=== PATIENT | female | born 1960 | race Caucasian/White ===

== ENCOUNTER 2018-11-04 22:28 | Emergency (ER) | payer OTHER ==
[~2018-11-04] VITALS: Ht 160 cm; Wt 114.8 kg
[2018-11-04 23:13] LABS: BASOPHILS ABSOLUTE AUTO 0.04 K/mm3 (0.00-0.23); BASOPHILS PERCENT AUTO 1 % (0-2); EOSINOPHILS ABSOLUTE AUTO 0.18 K/mm3 (0.00-0.68); EOSINOPHILS PERCENT AUTO 2 % (0-6); Hematocrit 42.3 % (33.0-51.0); Hemoglobin 13.9 g/dL (11.5-16.0); IMMATURE GRAN ABSOLUTE AUTO 0.08 K/mm3 (0.00-0.10); IMMATURE GRAN PERCENT AUTO 1 % (0-1); LYMPHOCYTES ABSOLUTE AUTO 1.79 K/mm3 (0.84-5.20); LYMPHOCYTES PERCENT AUTO 21 % (21-46); MONOCYTES ABSOLUTE AUTO 0.79 K/mm3 (0.16-1.47); MONOCYTES PERCENT AUTO 9 % (4-13); Mean Corpuscular HGB Conc 32.9 g/dL (31.5-36.5); Mean Corpuscular Volume 98 fL (80-100); Mean Platelet Volume 10.4 fL (9.1-12.4); NEUTROPHILS ABSOLUTE AUTO 5.81 K/mm3 (1.96-9.15); NEUTROPHILS PERCENT AUTO 67 % (41-73); Platelet Count 212 K/mm3 (150-400); RDW Coefficient Variation 15.1 % (11.7-14.2); RDW Standard Deviation 54.8 fL (35.1-46.3); Red Blood Cell Count 4.34 M/mm3 (3.80-5.20); White Blood Cell Count 8.69 K/mm3 (4.00-11.30)
[2018-11-04 23:29] LABS: Alanine Aminotransfer (ALT/SGP 85 U/L (12-78); Albumin/Globulin Ratio 1.1 (0.8-1.8); Alk Phos 114 U/L (50-136); Anion Gap 10 mmol/L (6-16); Aspartate Aminotrans (AST/SGOT 43 U/L (12-37); Bilirubin, Total 0.7 mg/dL (0.1-1.0); Blood Urea Nitrogen 8 mg/dL (8-24); Bun/Creatinine Ratio 11.6 (12.0-20.0); CO2, Blood 27 mmol/L (21-32); Calcium, Blood 9.3 mg/dL (8.5-10.1); Chloride, Blood 101 mmol/L (98-108); Creatinine, Blood 0.69 mg/dL (0.40-1.00); Globulin, Blood 3.8 g/dL (2.2-4.0); Glomerular Filtration Rate >60 (60-); Glucose, Blood 118 mg/dL (70-99); Potassium, Blood 3.6 mmol/L (3.5-5.5); Sodium, Blood 138 mmol/L (136-145); Total Protein, Blood 7.8 g/dL (6.4-8.2); Troponin I <0.015 ng/mL (0.000-0.040)
[2018-11-05] MEDS ORDERED: LOSA25 (00:01)
[2018-11-05] MEDS ORDERED: METF500 (00:01)
[2018-11-05] MEDS ORDERED: Bactrim Ds Tab1 EACH (00:01)
[2018-11-05] MEDS ORDERED: FURO100EL PO (00:02)
[2018-11-05] MEDS ORDERED: MELO7.5 (00:02)
[2018-11-05] MEDS ORDERED: POTA8 (00:02)
[2018-11-05] MEDS ORDERED: Zofran4 MG PO (03:04)
== END 2018-11-05 03:25 | disposition home or self-care (01) ==
LOC: ER 22:28
PROVIDERS: Physician Assistant
DX: I10 Essential (primary) hypertension (principal); E11.9 Type 2 diabetes mellitus without complications; Z79.84 Long term (current) use of oral hypoglycemic drugs; Z79.899 Other long term (current) drug therapy
CPT/HCPCS: 71046; 80053; 84484; 85025; 93005; 93010; 99284-25

== ENCOUNTER 2018-11-16 09:05 | Emergency (ER) | payer OTHER ==
[~2018-11-16] VITALS: Ht 160 cm; Wt 113.4 kg
[~2018-11-16 09:05] MED LIST: Bactrim Ds Tab1 EACH; FURO100EL PO; LOSA25; MELO7.5; METF500; POTA8; Zofran4 MG PO
[2018-11-16] MEDS ORDERED: POTA8 (09:58)
[2018-11-16] MEDS ORDERED: PANT20 PO (09:58)
[2018-11-16] MEDS ORDERED: FURO40 PO (09:58)
[2018-11-16] MEDS ORDERED: BACL10 (09:59)
[2018-11-16] MEDS ORDERED: ALBU90OI INH (09:59)
[2018-11-16] MEDS ORDERED: WIXELA INHUB (09:59)
[2018-11-16] MEDS ORDERED: PROG100 (09:59)
[2018-11-16] MEDS ORDERED: GABA100 (09:59)
[2018-11-16] MEDS ORDERED: COLCHICINE0.6 MG PO (09:59)
[2018-11-16] MEDS ORDERED: MELO7.5 (10:00)
[2018-11-16] MEDS ORDERED: Metformin Hydro25 GM (10:00)
[2018-11-16] MEDS ORDERED: LOSA25 (10:00)
[2018-11-16] MEDS ORDERED: Percocet 5-3251 EACH PO (10:54)
[2018-11-16] MEDS ORDERED: CEPH500 PO ×3 (10:54→11:05)
[2018-11-16] MEDS ORDERED: Monodox100 MG PO ×3 (10:54→11:05)
[2018-11-16] MEDS ORDERED: TRAM50 PO (11:10)
[2018-11-16] MEDS ORDERED: FLUC150A PO (13:32)
== END 2018-11-16 11:19 | disposition home or self-care (01) ==
LOC: ER 09:05
DX: L03.116 Cellulitis of left lower limb (principal); Z79.899 Other long term (current) drug therapy; E11.9 Type 2 diabetes mellitus without complications; I10 Essential (primary) hypertension; Z87.891 Personal history of nicotine dependence
CPT/HCPCS: 93971; 96372; 99283-25; J1885

== ENCOUNTER 2020-02-27 09:37 | Emergency (ER) | payer OTHER ==
[~2020-02-27] VITALS: Ht 160 cm; Wt 116.6 kg
[~2020-02-27 09:37] MED LIST changes: +ALBU90OI INH; +BACL10; +CEPH500 PO; +COLCHICINE0.6 MG PO; +FLUC150A PO; +FURO40 PO; +GABA100; +Metformin Hydro25 GM; +Monodox100 MG PO; +PANT20 PO; +PROG100; +Percocet 5-3251 EACH PO; +TRAM50 PO; +WIXELA INHUB
[2020-02-27 10:14] LABS: BASOPHILS ABSOLUTE AUTO 0.05 K/mm3 (0.00-0.23); BASOPHILS PERCENT AUTO 1 % (0-2); EOSINOPHILS ABSOLUTE AUTO 0.15 K/mm3 (0.00-0.68); EOSINOPHILS PERCENT AUTO 3 % (0-6); Hematocrit 35.5 % (33.0-51.0); IMMATURE GRAN PERCENT AUTO 2 % (0-1); LYMPHOCYTES ABSOLUTE AUTO 1.27 K/mm3 (0.84-5.20); LYMPHOCYTES PERCENT AUTO 22 % (21-46); MONOCYTES ABSOLUTE AUTO 0.66 K/mm3 (0.16-1.47); MONOCYTES PERCENT AUTO 12 % (4-13); Mean Corpuscular HGB 30.5 pg (26.0-34.0); Mean Corpuscular Volume 98 fL (80-100); Mean Platelet Volume 10.7 fL (9.1-12.4); NEUTROPHILS ABSOLUTE AUTO 3.46 K/mm3 (1.96-9.15); NEUTROPHILS PERCENT AUTO 61 % (41-73); Platelet Count 224 K/mm3 (150-400); RDW Coefficient Variation 16.6 % (11.7-14.2); RDW Standard Deviation 60.2 fL (35.1-46.3); Red Blood Cell Count 3.61 M/mm3 (3.80-5.20); White Blood Cell Count 5.69 K/mm3 (4.00-11.30)
[2020-02-27 10:30] LABS: Alanine Aminotransfer (ALT/SGP 79 U/L (12-78); Albumin, Blood 3.3 g/dL (3.4-5.0); Alk Phos 110 U/L (50-136); Anion Gap 4 mmol/L (6-16); Aspartate Aminotrans (AST/SGOT 56 U/L (12-37); Bilirubin, Total 0.4 mg/dL (0.1-1.0); Blood Urea Nitrogen 12 mg/dL (8-24); Bun/Creatinine Ratio 17.3 (12.0-20.0); CO2, Blood 32 mmol/L (21-32); Calcium, Blood 8.7 mg/dL (8.5-10.1); Chloride, Blood 104 mmol/L (98-108); Creatinine, Blood 0.69 mg/dL (0.40-1.00); Globulin, Blood 3.2 g/dL (2.2-4.0); Glomerular Filtration Rate >60 (60-); Glucose, Blood 145 mg/dL (70-99); Magnesium, Blood 1.2 mg/dL (1.6-2.4); Potassium, Blood 4.2 mmol/L (3.5-5.5); Sodium, Blood 140 mmol/L (136-145); Total Protein, Blood 6.5 g/dL (6.4-8.2)
[2020-02-27] MEDS ORDERED: ANORO ELLIPTA1 EAC1 IH (10:42)
[2020-02-27] MEDS ORDERED: SERT100 PO (10:43)
[2020-02-27] MEDS ORDERED: Naltrexone HCl50 MG PO (10:44)
[2020-02-27] MEDS ORDERED: PANT40 PO (10:44)
[2020-02-27] MEDS ORDERED: FOLI1 PO (10:45)
[2020-02-27] MEDS ORDERED: ALLO300 PO (10:45)
[2020-02-27] MEDS ORDERED: ACAMPROSATE CA333 MG PO (10:46)
[2020-02-27] MEDS ORDERED: FLOVENT HFA12 GM INH (10:46)
[2020-02-27] MEDS ORDERED: ATOR40TA PO (10:47)
[2020-02-27] MEDS ORDERED: OMEGA-3 FISH O1 EAC6 PO (10:48)
[2020-02-27] MEDS ORDERED: TRAZ50 PO (10:48)
[2020-02-27] MEDS ORDERED: ALBU8HFA2 INH (10:49)
[2020-02-27] MEDS ORDERED: BACL10 PO (10:50)
[2020-02-27] MEDS ORDERED: ONDA4 PO (10:50)
[2020-02-27] MEDS ORDERED: POTA20PAC PO (12:47)
== END 2020-02-27 13:18 | disposition home or self-care (01) ==
LOC: ER 09:37
PROVIDERS: Emergency Medicine
DX: R60.0 Localized edema (principal); J44.9 Chronic obstructive pulmonary disease, unspecified; E11.9 Type 2 diabetes mellitus without complications; I10 Essential (primary) hypertension; Z79.84 Long term (current) use of oral hypoglycemic drugs; Z79.899 Other long term (current) drug therapy
CPT/HCPCS: 36415; 71046; 80053; 83735; 83880; 85025; 93005; 93010; 96374; 99284-25; J1940